=== PATIENT | female | born 1955 | race Caucasian/White ===

== ENCOUNTER → 2018-10-04 | Outpatient (CLI) | payer MEDICARE, OTHER ==
[~2018-10-04] MED LIST: ASPIRIN 81M81 MG/TA2 PO; EPA FISH OIL1 SGL PO; HCTZ 25MG TAB25 MG PO; MULTI VITAMINS1 TAB PO; OXY IR5 MG PO; TENORMIN100 MG PO; VITAMIN D31000 I1 PO; YEAST; YEAST PO
== END ==
LOC: COL.RAD 08:11
DX: C34.90 Malignant neoplasm of unspecified part of unspecified bronchus or lung (principal); Z96.653 Presence of artificial knee joint, bilateral
CPT/HCPCS: A9503

== ENCOUNTER → 2018-10-06 | Outpatient (CLI) | payer BC, MEDICARE, OTHER ==
[~2018-10-06] VITALS: Ht 170.2 cm; Wt 80.6 kg
[2018-10-06] VITALS (11 sets, daily range): BP systolic 101–121; BP diastolic 50–69; PULSE 51–63
== END ==
LOC: COL.RAD 07:00
DX: C78.7 Secondary malignant neoplasm of liver and intrahepatic bile duct (principal)

== ENCOUNTER 2018-10-15 11:09 | Observation (INO) | payer BC, MEDICARE, OTHER ==
[~2018-10-15] VITALS: Ht 170.2 cm; Wt 68.4 kg
[2018-10-15 11:27] VITALS: BP 106/73; PULSE 63; TEMP 97.7
[2018-10-15 12:39] LABS: HEMATOCRIT 40.7 % (37.0-47.0); HEMOGLOBIN 13.7 g/dl (12.5-16.0); MEAN CELL VOLUME 92 fl (80.0-100.0); MEAN CORPUSCULAR HEMOGLOBIN 31 pg (27.0-31.0); MEAN CORPUSCULAR HGB CONC 34 g/dl (33.0-37.0); MEAN PLATELET VOLUME 9.3 fl (7.4-10.4); PLATELET COUNT 222 K/mm3 (130-400); RED BLOOD COUNT 4.44 M/mm3 (4.10-5.30); REDCELL DISTRIBUTION WIDTH-CV 14.2 % (11.5-14.5)
[2018-10-15 12:49] LABS: ALBUMIN 3.2 gm/dL (3.5-5.0); CALCIUM 10.7 mg/dL (8.4-10.2); CREATININE, serum 0.92 mg/dL (0.52-1.25); POTASSIUM 3.5 mmol/L (3.4-5.0); TOTAL PROTEIN 6.4 gm/dL (6.4-8.2)
[2018-10-15 12:56] LABS: BAND 29 % (0-10); EOSINOPHIL 1 % (0-4); LYMPHOCYTE 14 % (20.0-51.0); METAMYELOCYTE 2 % (0-0); MYELOCYTE 2 % (0-0); NEUTROPHILS 49 % (42.0-75.2); NUCLEATED RED BLOOD CELL 2 (0-6); PLATELET ESTIMATE NORMAL (NORMAL)
[2018-10-15 16:34] VITALS: BP 93/58; PULSE 54; TEMP 97.9
[2018-10-15 19:19] VITALS: BP 114/61; PULSE 52; TEMP 97.5
[2018-10-16 00:06] VITALS: BP 111/62; PULSE 54
[2018-10-16 04:16] VITALS: BP 136/72; PULSE 56
[2018-10-16 07:41] VITALS: BP 135/77; PULSE 68; TEMP 97.3
[2018-10-16 08:33] LABS: MUCOUS Present /lpf; PH 5 (5-8); SQUAMOUS EPITHELIAL 0-2 /hpf; URINE APPEARANCE Hazy; URINE BACTERIA None Seen /hpf; URINE BILIRUBIN Negative (NEGATIVE); URINE BLOOD Negative (NEGATIVE); URINE COLOR Amber; URINE GLUCOSE Negative (NEGATIVE); URINE KETONE Negative (NEGATIVE); URINE LEUKOCYTE ESTERASE Negative (NEGATIVE); URINE NITRATE Negative (NEGATIVE); URINE PROTEIN(semi-quant) 2+ (NEGATIVE); URINE RBC 0-2 /hpf; URINE UROBILINOGEN Negative (NEGATIVE)
[2018-10-16 08:37] LABS: AMORPHOUS CRYSTAL Present /uL
[2018-10-16 09:00] LABS: COLLECTION METHOD CLEAN CATCH
[2018-10-16 11:00] LABS: HEMATOCRIT 39.7 % (37.0-47.0); HEMOGLOBIN 13.2 g/dl (12.5-16.0); MEAN CELL VOLUME 93 fl (80.0-100.0); MEAN CORPUSCULAR HEMOGLOBIN 31 pg (27.0-31.0); MEAN CORPUSCULAR HGB CONC 33 g/dl (33.0-37.0); MEAN PLATELET VOLUME 9.9 fl (7.4-10.4); PLATELET COUNT 223 K/mm3 (130-400); RED BLOOD COUNT 4.29 M/mm3 (4.10-5.30); REDCELL DISTRIBUTION WIDTH-CV 14.3 % (11.5-14.5)
[2018-10-16 11:27] LABS: ALBUMIN 3.1 gm/dL (3.5-5.0); BILIRUBIN,TOTAL 2.4 mg/dL (0.0-1.0); CREATININE, serum 0.82 mg/dL (0.52-1.25); POTASSIUM 3.4 mmol/L (3.4-5.0); TOTAL PROTEIN 6.1 gm/dL (6.4-8.2)
[2018-10-16 11:39] LABS: BAND 43 % (0-10); LYMPHOCYTE 16 % (20.0-51.0); NEUTROPHILS 34 % (42.0-75.2); NUCLEATED RED BLOOD CELL 1 (0-6); PLATELET ESTIMATE NORMAL (NORMAL)
[2018-10-16 12:10] VITALS: BP 103/76; PULSE 79; TEMP 98.2
[2018-10-16] MEDS ORDERED: ROXICODONE 55 MG/TAB PO (13:27)
[2018-10-16] MEDS ORDERED: FENTANYL 12MCG TD (13:27)
[2018-10-16] MEDS ORDERED: COLACE 100100 MG/CAP PO (13:28)
[2018-10-16] MEDS ORDERED: GOOD NEIGH1200 MG/15 PO (13:28)
[2018-10-16] MEDS ORDERED: ZYLOPRIM 300MG300 MG PO (13:29)
== END 2018-10-16 15:15 | disposition hospice, inpatient (51) ==
LOC: MEDICAL 11:09
PROVIDERS: Hospitalist
DX: R62.7 Adult failure to thrive (principal); R53.83 Other fatigue; I10 Essential (primary) hypertension; E86.0 Dehydration; R91.8 Other nonspecific abnormal finding of lung field; R16.0 Hepatomegaly, not elsewhere classified; E83.52 Hypercalcemia; D72.829 Elevated white blood cell count, unspecified; F17.210 Nicotine dependence, cigarettes, uncomplicated; C34.90 Malignant neoplasm of unspecified part of unspecified bronchus or lung; Z90.710 Acquired absence of both cervix and uterus; Z79.82 Long term (current) use of aspirin; Z88.1 Allergy status to other antibiotic agents; Z80.8 Family history of malignant neoplasm of other organs or systems
CPT/HCPCS: G0378; J1170; J1644; J7030